=== PATIENT | male | born 1990 | race Caucasian/White ===

== ENCOUNTER 2018-06-14 16:51 | Emergency (ER) | payer OTHER ==
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
[2018-06-14 17:48] VITALS: RESP 18; O2SAT 100
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
--- NOTE | 2018-06-14 18:18 | CT ---
Date of service: 06/14/18 CT cervical spine without IV contrast Indication: Injury Comparison: None available Technique: Axial computed tomography images were obtained of the cervical spine without the use of intravenous contrast. Coronal and sagittal reformatted images were created and reviewed. This CT exam was performed using 1 or more of the following dose reduction techniques: Automated exposure control, adjustment of the MAA and/or kV according to patient size, and/or use of iterative reconstruction technique. Radiation dose: Total exam DLP = 478.76 mGy-cm. Findings: Straightening of the normal cervical lordosis may be related to muscle spasm or positioning. There is no evidence of acute fracture or subluxation. Loss of vertebral body height of C6 with subtle increased sclerosis and rounded lucencies at this level, uncertain significance. Preserved intervertebral disc spaces. The prevertebral soft tissues and spinolaminar lines appear intact. The lateral masses are preserved. The dens tip is intact. There is proper alignment of the lateral masses of C1 with the C2 vertebral body. Included portions of the thyroid gland appear unremarkable. Included portions of lung apices appear clear. Impression: Straightening of the normal cervical lordosis may be related to muscle spasm or positioning. Loss of vertebral body height of C6 with subtle increased sclerosis and rounded lucencies at this level, uncertain significance. Further evaluation with MRI may be considered. No evidence of acute displaced fracture or subluxation.
[2018-06-14 18:21] VITALS: TEMP 97.8
[2018-06-14 18:46] VITALS: BP 132/76; PULSE 80
== END 2018-06-14 18:54 | disposition home or self-care (01) ==
LOC: ED 16:51
DX: S13.4XXA Sprain of ligaments of cervical spine, initial encounter (principal); S09.90XA Unspecified injury of head, initial encounter; V49.49XA Driver injured in collision with other motor vehicles in traffic accident, initial encounter; Y92.414 Local residential or business street as the place of occurrence of the external cause